=== PATIENT | female | born 1985 | race Caucasian/White ===

== ENCOUNTER 2016-12-24 08:46 | Inpatient (IN) | payer MEDICAID ==
[~2016-12-24] VITALS: Ht 175.3 cm; Wt 77.6 kg
[2016-12-24] MEDS ORDERED: LITH300C3 PO (09:01)
[2016-12-24] MEDS ORDERED: [UNRECOGNIZED DRUG - OTHER] PO (09:01)
[2016-12-24 09:35] LABS: BASOPHILS % (AUTO) 0.3 % (0.0-2.0); EOSINOPHILS % (AUTO) 0.4 % (1.0-6.0); HEMATOCRIT 42.5 % (36-46); LYMPHOCYTES # (AUTO) 1.5 K/uL (1.0-4.8); LYMPHOCYTES % (AUTO) 13.1 % (22.0-44.0); MEAN CORPUSCULAR HEMOGLOBIN 30.9 pg (26.0-34.0); MEAN CORPUSCULAR HGB CONC 32.9 G/dL (31.0-37.0); MEAN CORPUSCULAR VOLUME 94 fL (80-100); MONOCYTES # (AUTO) 0.8 K/uL (0.1-1.0); MONOCYTES % (AUTO) 6.5 % (2.0-9.0); NEUTROPHILS # (AUTO) 9.4 K/uL (1.8-7.7); NEUTROPHILS % (AUTO) 79.7 % (40.0-70.0); PLATELET COUNT (AUTO) 262 K/uL (150-450); RED BLOOD CELL COUNT(AUTO) 4.53 MIL/uL (4.00-5.20); WHITE BLOOD COUNT (AUTO) 11.8 K/uL (4.5-11.0)
[2016-12-24 09:40] LABS: ANION GAP 11 mmol/L (8-16); CALCIUM, TOTAL 9.4 mg/dL (8.8-10.5); CARBON DIOXIDE 25 mmol/L (22-29); CHLORIDE 104 mmol/L (98-107); CREATININE 0.97 mg/dL (0.60-1.30); GLOMERULAR FILTR. RATE CALC > 60 mL/min (>60); SODIUM SERUM 140 mmol/L (136-145); UREA NITROGEN, BLOOD 14 mg/dL (7-18)
[2016-12-24 09:45] LABS: ALANINE AMINOTRANSFERASE 17 U/L (12-78); ALBUMIN 4.4 g/dL (3.4-5.0); ASPARTATE AMINOTRANSFERASE 10 U/L (15-37); BILIRUBIN,TOTAL 0.9 mg/dL (0.1-1.0); TOTAL PROTEIN, SERUM 7.7 g/dL (6.4-8.2)
[2016-12-24 09:53] LABS: LITHIUM 0.93 mmol/L (0.60-1.20)
[2016-12-24] MEDS ORDERED: ZOLPIDEM TARTRATE 10 MG TABLET PO PRN (12:15)
[2016-12-24] MEDS ORDERED: HALOPERIDOL 5 MG TABLET PO PRN (12:15)
[2016-12-24] MEDS ORDERED: LORazepam 2 MG TABLET PO PRN (12:15)
[2016-12-24] MEDS ORDERED: ACETAMINOPHEN 325 MG TABLET PO PRN (15:15)
[2016-12-24 16:09] VITALS: BP 138/86
[2016-12-24] MEDS: RisperiDONE 0.5 MG TABLET PO SCH (16:14)
[2016-12-24] MEDS: LITHIUM CARBONATE 600 MG CAPSULE PO SCH (20:04)
[2016-12-25 03:56] VITALS: BP 138/94
[2016-12-25] MEDS: RisperiDONE 0.5 MG TABLET PO SCH ×2 (08:21→16:19)
[2016-12-25] MEDS: LITHIUM CARBONATE 300 MG CAPSULE PO SCH (08:21)
[2016-12-25 08:39] LABS: CHOL/HDL RATIO 1.9 (3.9-5.7)
[2016-12-25 08:46] VITALS: BP 123/80
[2016-12-25 16:11] VITALS: BP 118/80
[2016-12-25] MEDS: LITHIUM CARBONATE 600 MG CAPSULE PO SCH (20:42)
[2016-12-26 06:07] VITALS: BP 119/87
[2016-12-26] MEDS: RisperiDONE 0.5 MG TABLET PO SCH ×2 (08:09→16:07)
[2016-12-26] MEDS: LITHIUM CARBONATE 300 MG CAPSULE PO SCH (08:09)
[2016-12-26 08:55] VITALS: BP 114/66
[2016-12-26 16:12] VITALS: BP_SYST 73
[2016-12-26] MEDS: LITHIUM CARBONATE 600 MG CAPSULE PO SCH (20:06)
[2016-12-27 06:48] VITALS: BP 115/70
[2016-12-27] MEDS: LITHIUM CARBONATE 300 MG CAPSULE PO SCH (08:01)
[2016-12-27] MEDS: RisperiDONE 0.5 MG TABLET PO SCH ×2 (08:01→16:15)
[2016-12-27 08:36] VITALS: BP 128/78
[2016-12-27 16:00] VITALS: BP 123/84
[2016-12-27] MEDS: LITHIUM CARBONATE 600 MG CAPSULE PO SCH (20:59)
[2016-12-28 06:57] VITALS: BP 125/72
[2016-12-28] MEDS: RisperiDONE 0.5 MG TABLET PO SCH ×2 (08:03→16:18)
[2016-12-28] MEDS: LITHIUM CARBONATE 300 MG CAPSULE PO SCH (08:03)
[2016-12-28 08:44] VITALS: BP 121/72
[2016-12-28 16:00] VITALS: BP 126/74
[2016-12-28] MEDS: LITHIUM CARBONATE 600 MG CAPSULE PO SCH (20:16)
[2016-12-29 07:07] VITALS: BP 128/72
[2016-12-29 08:06] VITALS: BP 115/64
[2016-12-29] MEDS: RisperiDONE 0.5 MG TABLET PO SCH (08:07)
[2016-12-29] MEDS: LITHIUM CARBONATE 300 MG CAPSULE PO SCH (08:07)
[2016-12-29] MEDS ORDERED: LITH300CRT PO (09:34)
[2016-12-29] MEDS ORDERED: RISP.5 PO (09:34)
== END 2016-12-29 11:45 | disposition home or self-care (01) | DRG 750 ==
LOC: EMS 08:48 → AHU 11:08 → B3A 14:40
PROVIDERS: ADMIT Psychiatry & Neurology Psychiatry; ATTEND Psychiatry & Neurology Psychiatry
DX: F25.9 Schizoaffective disorder, unspecified (principal); R45.851 Suicidal ideations; Z91.14 Patient's other noncompliance with medication regimen; G43.909 Migraine, unspecified, not intractable, without status migrainosus; F31.9 Bipolar disorder, unspecified; Z79.899 Other long term (current) drug therapy; Z82.49 Family history of ischemic heart disease and other diseases of the circulatory system; Z82.5 Family history of asthma and other chronic lower respiratory diseases; Z80.42 Family history of malignant neoplasm of prostate
CPT/HCPCS: 99285; G0480

== ENCOUNTER 2017-04-07 19:05 | Emergency (ER) | payer MEDICAID ==
[~2017-04-07] VITALS: Ht 175.3 cm; Wt 72.0 kg
[~2017-04-07 19:05] MED LIST: LITH300C3 PO; LITH300CRT PO; RISP.5 PO
[2017-04-07 19:06] VITALS: BP 138/51
[2017-05-22] MEDS ORDERED: RISP3 PO (11:22)
== END 2017-04-07 19:20 | disposition left against medical advice (07) ==
LOC: EMS 19:06
DX: R56.9 Unspecified convulsions (principal); Z53.21 Procedure and treatment not carried out due to patient leaving prior to being seen by health care provider

== ENCOUNTER 2017-05-09 07:32 | Inpatient (IN) | payer MEDICAID, OTHER ==
[~2017-05-09] VITALS: Ht 175.3 cm; Wt 83.9 kg
[2017-05-09 08:21] LABS: BASOPHILS % (AUTO) 0.3 % (0.0-2.0); EOSINOPHILS % (AUTO) 0.9 % (1.0-6.0); HEMATOCRIT 38.9 % (36-46); HEMOGLOBIN 13.1 g/dL (12.0-16.0); LYMPHOCYTES # (AUTO) 1.8 K/uL (1.0-4.8); LYMPHOCYTES % (AUTO) 20.5 % (22.0-44.0); MEAN CORPUSCULAR HEMOGLOBIN 30.7 pg (26.0-34.0); MEAN CORPUSCULAR HGB CONC 33.5 G/dL (31.0-37.0); MEAN CORPUSCULAR VOLUME 92 fL (80-100); MONOCYTES # (AUTO) 0.4 K/uL (0.1-1.0); MONOCYTES % (AUTO) 5.2 % (2.0-9.0); NEUTROPHILS # (AUTO) 6.3 K/uL (1.8-7.7); NEUTROPHILS % (AUTO) 73.1 % (40.0-70.0); PLATELET COUNT (AUTO) 262 K/uL (150-450); RED BLOOD CELL COUNT(AUTO) 4.25 MIL/uL (4.00-5.20); RED CELL DISTRIBUTION WIDTH 12.6 % (11.5-14.5)
[2017-05-09 08:28] LABS: ANION GAP 8 mmol/L (8-16); CALCIUM, TOTAL 8.9 mg/dL (8.8-10.5); CARBON DIOXIDE 28 mmol/L (22-29); CHLORIDE 108 mmol/L (98-107); CREATININE 0.98 mg/dL (0.60-1.30); GLOMERULAR FILTR. RATE CALC > 60 mL/min (>60); GLUCOSE,RANDOM 101 mg/dL (70-110); POTASSIUM 4.4 mmol/L (3.5-5.1); SODIUM SERUM 144 mmol/L (136-145); UREA NITROGEN, BLOOD 17 mg/dL (7-18)
[2017-05-09] MEDS ORDERED: RisperiDONE 1 MG TABLET PO ONE (08:30)
[2017-05-09 08:32] LABS: ALANINE AMINOTRANSFERASE 23 U/L (12-78); ALBUMIN 3.8 g/dL (3.4-5.0); ALKALINE PHOSPHATASE 48 U/L (46-116); ASPARTATE AMINOTRANSFERASE 15 U/L (15-37); BILIRUBIN,TOTAL 0.3 mg/dL (0.1-1.0)
[2017-05-09] MEDS ORDERED: LITHIUM CARBONATE 300 MG CAPSULE PO ONE (08:45)
[2017-05-09] MEDS ORDERED: ZOLPIDEM TARTRATE 10 MG TABLET PO PRN (09:30)
[2017-05-09] MEDS ORDERED: LORazepam 2 MG TABLET PO PRN (09:30)
[2017-05-09] MEDS ORDERED: HALOPERIDOL 5 MG TABLET PO PRN (09:30)
[2017-05-09 10:47] LABS: AMPHET/METH SCREEN,URINE NEGATIVE (NEGATIVE); BARBITURATE SCREEN, URINE NEGATIVE (NEGATIVE); BENZODIAZEPINES SCREEN,URINE NEGATIVE (NEGATIVE); CANNABINOID SCREEN,URINE NEGATIVE (NEGATIVE); COCAINE SCREEN,URINE NEGATIVE (NEGATIVE); METHADONE SCREEN, URINE NEGATIVE (NEGATIVE); OPIATE SCREEN,URINE NEGATIVE (NEGATIVE); PHENCYCLIDINE SCREEN,URINE NEGATIVE (NEGATIVE)
[2017-05-09] MEDS ORDERED: LITH600 PO (12:23)
[2017-05-09] MEDS ORDERED: INFLUENZA VIRUS VACCINE QVS 2017-18 (3YR+)/PF 60 MCG/0.5 ML SYRINGE IM ONE (12:30)
[2017-05-09 16:58] VITALS: BP 123/64
[2017-05-09] MEDS: RisperiDONE 0.5 MG TABLET PO SCH (16:58)
[2017-05-09] MEDS: LITHIUM CARBONATE 600 MG CAPSULE PO SCH (20:27)
[2017-05-10 06:42] VITALS: BP 118/68
[2017-05-10] MEDS: LITHIUM CARBONATE 300 MG CAPSULE PO SCH (08:29)
[2017-05-10] MEDS: RisperiDONE 0.5 MG TABLET PO SCH ×2 (08:29→17:19)
[2017-05-10 09:12] VITALS: BP 112/70
[2017-05-10 11:42] LABS: CHOL/HDL RATIO 2.6 (3.9-5.7); FREE T4 (FREE THYROXINE) 0.86 ng/dL (0.76-1.46); THYROID STIMULATING HORMONE 1.64 uIU/mL (0.36-3.74)
[2017-05-10 16:00] VITALS: BP 119/92
[2017-05-10] MEDS: LITHIUM CARBONATE 600 MG CAPSULE PO SCH (20:08)
[2017-05-11 00:21] VITALS: BP 133/84
[2017-05-11] MEDS: LITHIUM CARBONATE 300 MG CAPSULE PO SCH (08:29)
[2017-05-11] MEDS: RisperiDONE 0.5 MG TABLET PO SCH ×2 (08:29→16:13)
[2017-05-11 09:08] VITALS: BP 128/73
[2017-05-11 16:25] VITALS: BP 117/70
[2017-05-11] MEDS: LITHIUM CARBONATE 600 MG CAPSULE PO SCH (20:11)
[2017-05-12 05:23] VITALS: BP 111/69
[2017-05-12] MEDS: LITHIUM CARBONATE 300 MG CAPSULE PO SCH (09:00)
[2017-05-12] MEDS: RisperiDONE 1 MG TABLET PO SCH ×2 (09:46→16:31)
[2017-05-12 09:51] VITALS: BP 122/71
[2017-05-12 16:55] VITALS: BP 108/74
[2017-05-12] MEDS: LITHIUM CARBONATE 600 MG CAPSULE PO SCH (20:17)
[2017-05-13 06:25] VITALS: BP 114/63
[2017-05-13] MEDS: RisperiDONE 1 MG TABLET PO SCH (08:54)
[2017-05-13] MEDS: LITHIUM CARBONATE 300 MG CAPSULE PO SCH (09:00)
[2017-05-13] MEDS: RisperiDONE 2 MG TABLET PO SCH (16:15)
[2017-05-13 16:31] VITALS: BP 106/65
[2017-05-14 07:17] VITALS: BP 110/63
[2017-05-14 08:25] VITALS: BP 121/72
[2017-05-14] MEDS: RisperiDONE 2 MG TABLET PO SCH ×2 (09:48→17:11)
[2017-05-14 16:20] VITALS: BP 136/76
[2017-05-15 08:36] VITALS: BP 123/76
[2017-05-15] MEDS: RisperiDONE 2 MG TABLET PO SCH ×2 (08:53→16:47)
[2017-05-15 16:27] VITALS: BP 121/77
[2017-05-16 03:18] VITALS: BP 127/63
[2017-05-16 08:33] VITALS: BP 122/77
[2017-05-16] MEDS: RisperiDONE 2 MG TABLET PO SCH ×2 (09:25→16:52)
[2017-05-16 16:48] VITALS: BP 108/70
[2017-05-17 05:11] VITALS: BP 112/63
[2017-05-17 08:47] VITALS: BP_SYST 116; BP_SYST 168; BP_DIAS 68
[2017-05-17] MEDS: RisperiDONE 2 MG TABLET PO SCH ×2 (09:29→16:36)
[2017-05-17 16:38] VITALS: BP 107/71
[2017-05-18 02:11] VITALS: BP 116/76
[2017-05-18] MEDS ORDERED: RisperiDONE 3 MG TABLET PO SCH (09:00)
[2017-05-22] MEDS ORDERED: RISP3 PO (11:22)
== END 2017-05-18 13:30 | disposition home or self-care (01) | DRG 753 ==
LOC: EMS 07:37 → B3A 09:52
PROVIDERS: ADMIT Psychiatry & Neurology Psychiatry; ATTEND Psychiatry & Neurology Psychiatry
DX: F31.9 Bipolar disorder, unspecified (principal); F25.9 Schizoaffective disorder, unspecified; F22 Delusional disorders; Z82.49 Family history of ischemic heart disease and other diseases of the circulatory system; Z82.5 Family history of asthma and other chronic lower respiratory diseases
CPT/HCPCS: 84439; 84443; 87081; 99285; G0480

== ENCOUNTER 2017-06-03 18:59 | Inpatient (IN) | payer MEDICAID, OTHER ==
[~2017-06-03] VITALS: Ht 175.3 cm; Wt 85.4 kg
[~2017-06-03 18:59] MED LIST changes: +DOCU250C91 PO; -LITH300C3 PO; -LITH300CRT PO; +LITH450CRT PO; -RISP.5 PO; +RISP3 PO; +RISP3TAB44 PO
[2017-06-03] MEDS ORDERED: HALOPERIDOL 5 MG TABLET PO PRN (22:45)
[2017-06-03] MEDS ORDERED: LORazepam 2 MG TABLET PO PRN (22:45)
[2017-06-03] MEDS ORDERED: ZOLPIDEM TARTRATE 10 MG TABLET PO PRN (22:45)
[2017-06-03] MEDS ORDERED: LITHIUM CARBONATE 300 MG CAPSULE PO ONE (23:15)
[2017-06-04] MEDS ORDERED: INFLUENZA VIRUS VACCINE QVS 2017-18 (3YR+)/PF 60 MCG/0.5 ML SYRINGE IM ONE (01:15)
[2017-06-04 01:39] VITALS: BP 125/74
[2017-06-04 14:24] VITALS: BP 104/70
[2017-06-04 16:10] VITALS: BP 120/63
[2017-06-04] MEDS: LITHIUM CARBONATE 300 MG CAPSULE PO SCH (20:32)
[2017-06-05 07:00] VITALS: BP 121/74
[2017-06-05 08:37] VITALS: BP 122/74
[2017-06-05] MEDS: RisperiDONE 3 MG TABLET PO SCH ×2 (09:06→16:35)
[2017-06-05 16:05] VITALS: BP 109/69
[2017-06-05] MEDS: LITHIUM CARBONATE 300 MG CAPSULE PO SCH (20:22)
[2017-06-05] MEDS ORDERED: TUBERCULIN, PURIFIED PROTEIN DERIVATIVE 5 TU/0.1 ML SYG ID ONE (21:15)
[2017-06-06 02:58] VITALS: BP 114/75
[2017-06-06] MEDS: RisperiDONE 3 MG TABLET PO SCH ×2 (08:36→16:49)
[2017-06-06 08:46] VITALS: BP 123/65
[2017-06-06 16:00] VITALS: BP 109/67
[2017-06-06] MEDS: LITHIUM CARBONATE 300 MG CAPSULE PO SCH (20:39)
[2017-06-07 07:14] VITALS: BP 120/70
[2017-06-07 08:28] VITALS: BP 108/73
[2017-06-07] MEDS: RisperiDONE 3 MG TABLET PO SCH ×2 (08:49→17:13)
[2017-06-07 16:16] VITALS: BP 117/64
[2017-06-07] MEDS: LITHIUM CARBONATE 300 MG CAPSULE PO SCH (20:36)
[2017-06-08 07:06] VITALS: BP 115/68
[2017-06-08] MEDS: RisperiDONE 3 MG TABLET PO SCH ×2 (08:08→16:17)
[2017-06-08 08:43] VITALS: BP 116/75
[2017-06-08 16:23] VITALS: BP 121/78
[2017-06-08] MEDS: LITHIUM CARBONATE 300 MG CAPSULE PO SCH (20:20)
[2017-06-09 06:45] VITALS: BP 111/76
[2017-06-09 08:11] VITALS: BP 135/86
[2017-06-09] MEDS: RisperiDONE 3 MG TABLET PO SCH ×2 (08:26→16:58)
[2017-06-09 16:30] VITALS: BP 115/72
[2017-06-09] MEDS: LITHIUM CARBONATE 300 MG CAPSULE PO SCH (20:42)
[2017-06-10 07:28] VITALS: BP 110/76
[2017-06-10] MEDS: RisperiDONE 3 MG TABLET PO SCH ×2 (08:15→16:30)
[2017-06-10 08:34] VITALS: BP 125/69
[2017-06-10 17:05] VITALS: BP 119/68
[2017-06-10] MEDS: LITHIUM CARBONATE 300 MG CAPSULE PO SCH (20:58)
[2017-06-11 07:09] VITALS: BP 121/82
[2017-06-11] MEDS: RisperiDONE 3 MG TABLET PO SCH ×2 (08:23→16:08)
[2017-06-11 08:33] VITALS: BP 117/76
[2017-06-11 16:23] VITALS: BP 103/66
[2017-06-11] MEDS: LITHIUM CARBONATE 300 MG CAPSULE PO SCH (20:52)
[2017-06-12] MEDS: RisperiDONE 3 MG TABLET PO SCH ×2 (08:04→16:39)
[2017-06-12 08:33] VITALS: BP 112/60
[2017-06-12 16:18] VITALS: BP 110/68
[2017-06-12] MEDS: LITHIUM CARBONATE 300 MG CAPSULE PO SCH (20:35)
[2017-06-13 06:22] VITALS: BP 112/63
[2017-06-13 08:38] VITALS: BP 108/68
[2017-06-13] MEDS: RisperiDONE 3 MG TABLET PO SCH ×2 (08:52→16:36)
[2017-06-13 18:37] VITALS: BP 105/65
[2017-06-13] MEDS: LITHIUM CARBONATE 300 MG CAPSULE PO SCH (20:30)
[2017-06-14 06:00] VITALS: BP 110/64
[2017-06-14] MEDS: RisperiDONE 3 MG TABLET PO SCH (08:28)
[2017-06-14 08:41] VITALS: BP 115/68
[2017-06-14] MEDS ORDERED: RISP3 PO (11:42)
[2017-06-14] MEDS ORDERED: LITH600 PO (11:42)
== END 2017-06-14 13:45 | disposition home or self-care (01) | DRG 750 ==
LOC: EMS 19:00 → B3A 23:00
PROVIDERS: ADMIT Psychiatry & Neurology Psychiatry; ATTEND Psychiatry & Neurology Psychiatry
PROC: 3E0234Z Introduction of Serum, Toxoid and Vaccine into Muscle, Percutaneous Approach (ICD-10-PCS; principal; 2017-06-04)
DX: F25.0 Schizoaffective disorder, bipolar type (principal); Z59.0 Homelessness; Z23 Encounter for immunization; Z79.899 Other long term (current) drug therapy
CPT/HCPCS: 87081; 90471; 99285

== ENCOUNTER 2020-12-08 17:22 | Inpatient (IN) | payer MEDICAID, OTHER ==
[~2020-12-08] VITALS: Ht 175.3 cm; Wt 94.8 kg
[~2020-12-08 17:22] MED LIST changes: -DOCU250C91 PO; -LITH450CRT PO; +LITH600C5 PO; -RISP3 PO; +RISP3TAB35 PO; -RISP3TAB44 PO
[2020-12-08 20:06] LABS: COVID AG,FIA SOURCE NASOPHARYNGEAL
[2020-12-08 20:19] LABS: BASOPHILS % (AUTO) 0.5 % (0.0-2.0); EOSINOPHILS % (AUTO) 0.2 % (1.0-6.0); HEMATOCRIT 37.2 % (36-46); LYMPHOCYTES # (AUTO) 1.8 K/uL (1.0-4.8); LYMPHOCYTES % (AUTO) 16.7 % (22.0-44.0); MEAN CORPUSCULAR HEMOGLOBIN 29.3 pg (26.0-34.0); MEAN CORPUSCULAR HGB CONC 32.4 G/dL (31.0-37.0); MEAN CORPUSCULAR VOLUME 91 fL (80-100); MONOCYTES # (AUTO) 0.6 K/uL (0.1-1.0); MONOCYTES % (AUTO) 5.8 % (2.0-9.0); NEUTROPHILS # (AUTO) 8.2 K/uL (1.8-7.7); NEUTROPHILS % (AUTO) 76.8 % (40.0-70.0); PLATELET COUNT (AUTO) 248 K/uL (150-450); RED BLOOD CELL COUNT(AUTO) 4.11 MIL/uL (4.00-5.20); RED CELL DISTRIBUTION WIDTH 13.5 % (11.5-14.5)
[2020-12-08 20:40] LABS: LITHIUM 0.37 mmol/L (0.60-1.20)
[2020-12-08 20:43] LABS: ANION GAP 10 mmol/L (8-16); CALCIUM, TOTAL 8.8 mg/dL (8.8-10.5); CARBON DIOXIDE 24 mmol/L (22-29); CHLORIDE 106 mmol/L (98-107); CREATININE 0.87 mg/dL (0.60-1.30); GLOMERULAR FILTR. RATE CALC > 60 mL/min (>60); GLUCOSE,RANDOM 112 mg/dL (70-110); SODIUM SERUM 140 mmol/L (136-145); UREA NITROGEN, BLOOD 8 mg/dL (7-18)
[2020-12-08 20:53] LABS: ALANINE AMINOTRANSFERASE 32 U/L (12-78); ALKALINE PHOSPHATASE 64 U/L (46-116); ASPARTATE AMINOTRANSFERASE 18 U/L (15-37); BILIRUBIN,TOTAL 0.7 mg/dL (0.1-1.0)
[2020-12-08] MEDS ORDERED: ZOLPIDEM TARTRATE 10 MG TABLET PO PRN (21:45)
[2020-12-08] MEDS ORDERED: LORazepam 2 MG TABLET PO PRN (21:45)
[2020-12-08] MEDS ORDERED: HALOPERIDOL 5 MG TABLET PO PRN (21:45)
[2020-12-08 21:51] LABS: AMPHET/METH SCREEN,URINE NEGATIVE (NEGATIVE); BARBITURATE SCREEN, URINE NEGATIVE (NEGATIVE); BENZODIAZEPINES SCREEN,URINE NEGATIVE (NEGATIVE); CANNABINOID SCREEN,URINE NEGATIVE (NEGATIVE); COCAINE SCREEN,URINE NEGATIVE (NEGATIVE); METHADONE SCREEN, URINE NEGATIVE (NEGATIVE); OPIATE SCREEN,URINE NEGATIVE (NEGATIVE)
[2020-12-08 21:52] LABS: PHENCYCLIDINE SCREEN,URINE NEGATIVE (NEGATIVE)
[2020-12-09 00:38] VITALS: BP 141/69
[2020-12-09] MEDS ORDERED: MAG HYDROX/AL HYDROX/SIMETH ES 30 ML SUSPENSION UDCUP PO PRN (07:00)
[2020-12-09] MEDS ORDERED: LOPERAMIDE HCL 2 MG CAPSULE PO PRN (07:00)
[2020-12-09] MEDS ORDERED: MAGNESIUM HYDROXIDE SUSPENSION 30 ML UDCUP PO PRN (07:00)
[2020-12-09] MEDS ORDERED: PETROLATUM,WHITE 28 GM JELLY TP PRN (07:00)
[2020-12-09] MEDS ORDERED: OMEPRAZOLE 20 MG CAPSULE PO PRN (07:00)
[2020-12-09] MEDS ORDERED: CloNIDine HCL 0.1 MG TABLET PO PRN (07:00)
[2020-12-09] MEDS ORDERED: BACITRACIN 28 GM OINTMENT TP PRN (07:00)
[2020-12-09] MEDS ORDERED: ONDANSETRON HCL 4 MG TABLET PO PRN (07:00)
[2020-12-09] MEDS ORDERED: DOCUSATE SODIUM 100 MG CAPSULE PO PRN (07:00)
[2020-12-09] MEDS ORDERED: BENZOCAINE/MENTHOL LOZENGE PO PRN (07:00)
[2020-12-09] MEDS ORDERED: IBUPROFEN 600 MG TABLET PO PRN (07:00)
[2020-12-09] MEDS ORDERED: ACETAMINOPHEN 325 MG TABLET PO PRN (07:00)
[2020-12-09] MEDS ORDERED: ALBUTEROL SULFATE HFA 90 MCG/PUFF 8 GM INHALER IH PRN (07:00)
[2020-12-09 08:50] VITALS: BP 125/57
[2020-12-09 10:30] LABS: CHOL/HDL RATIO 2.8 (3.9-5.7)
[2020-12-09] MEDS ORDERED: DiphenhydrAMINE HCL 50 MG/ML VIAL ONE (11:14)
[2020-12-09] MEDS ORDERED: LORazepam 2 MG/ML VIAL ONE (11:14)
[2020-12-09] MEDS ORDERED: HALOPERIDOL LACTATE 5 MG/ML VIAL ONE (11:14)
[2020-12-09] MEDS ORDERED: LORazepam 2 MG/ML VIAL IM ONE (11:15)
[2020-12-09] MEDS ORDERED: HALOPERIDOL LACTATE 5 MG/ML VIAL IM ONE (11:15)
[2020-12-09] MEDS ORDERED: DiphenhydrAMINE HCL 50 MG/ML VIAL IM ONE (11:15)
[2020-12-09] MEDS: RisperiDONE 3 MG TABLET PO SCH (16:49)
[2020-12-09] MEDS: LITHIUM CARBONATE 300 MG CAPSULE PO SCH ×2 (21:00→22:45)
[2020-12-10 08:00] VITALS: BP 115/76
[2020-12-10] MEDS: RisperiDONE 3 MG TABLET PO SCH ×2 (08:07→16:23)
[2020-12-10 16:00] VITALS: BP 123/67
[2020-12-10] MEDS: LITHIUM CARBONATE 300 MG CAPSULE PO SCH (20:22)
[2020-12-11 08:21] VITALS: BP 141/81
[2020-12-11] MEDS: RisperiDONE 3 MG TABLET PO SCH ×2 (11:01→15:54)
[2020-12-11 18:55] VITALS: BP 108/68
[2020-12-11] MEDS: LITHIUM CARBONATE 300 MG CAPSULE PO SCH (20:15)
[2020-12-12 08:30] VITALS: BP 134/86
[2020-12-12] MEDS: RisperiDONE 3 MG TABLET PO SCH ×2 (09:05→16:05)
[2020-12-12 16:00] VITALS: BP 117/73
[2020-12-12] MEDS: LITHIUM CARBONATE 300 MG CAPSULE PO SCH (20:08)
[2020-12-13 04:12] VITALS: BP 113/75
[2020-12-13 08:00] VITALS: BP 101/66
[2020-12-13] MEDS: RisperiDONE 3 MG TABLET PO SCH ×2 (09:39→16:07)
[2020-12-13 16:00] VITALS: BP 118/72
[2020-12-13] MEDS: LITHIUM CARBONATE 300 MG CAPSULE PO SCH (20:06)
[2020-12-14 08:00] VITALS: BP 118/74
[2020-12-14] MEDS: RisperiDONE 3 MG TABLET PO SCH (11:24)
== END 2020-12-14 15:15 | disposition home or self-care (01) | DRG 750 ==
LOC: EMS 17:32 → 3EI 23:24 → 3EC 12-09 11:45
PROVIDERS: ADMIT Psychiatry & Neurology Psychiatry; ATTEND Psychiatry & Neurology Psychiatry
DX: F25.1 Schizoaffective disorder, depressive type (principal); R45.851 Suicidal ideations; F41.9 Anxiety disorder, unspecified; G47.00 Insomnia, unspecified; K59.00 Constipation, unspecified; Z79.899 Other long term (current) drug therapy; F19.10 Other psychoactive substance abuse, uncomplicated; Z20.822 Contact with and (suspected) exposure to COVID-19
CPT/HCPCS: 80053; 80061; 80178; 85025; 99285; G0480; J1200; J1630; J2060

== ENCOUNTER 2022-02-13 03:25 | Inpatient (IN) | payer MEDICAID, OTHER ==
[~2022-02-13] VITALS: Ht 175.3 cm; Wt 89.4 kg
[2022-02-13 04:18] LABS: BASOPHILS % (AUTO) 0.5 % (0.0-2.0); EOSINOPHILS % (AUTO) 1.4 % (1.0-6.0); HEMOGLOBIN 11.4 g/dL (12.0-16.0); LYMPHOCYTES # (AUTO) 2.3 K/uL (1.0-4.8); LYMPHOCYTES % (AUTO) 23.1 % (22.0-44.0); MEAN CORPUSCULAR HEMOGLOBIN 29.4 pg (26.0-34.0); MEAN CORPUSCULAR HGB CONC 32.6 G/dL (31.0-37.0); MEAN CORPUSCULAR VOLUME 90 fL (80-100); MONOCYTES # (AUTO) 0.8 K/uL (0.1-1.0); MONOCYTES % (AUTO) 7.7 % (2.0-9.0); NEUTROPHILS # (AUTO) 6.8 K/uL (1.8-7.7); NEUTROPHILS % (AUTO) 67.3 % (40.0-70.0); PLATELET COUNT (AUTO) 280 K/uL (150-450); RED BLOOD CELL COUNT(AUTO) 3.88 MIL/uL (4.00-5.20); RED CELL DISTRIBUTION WIDTH 13.9 % (11.5-14.5)
[2022-02-13 04:25] LABS: ANION GAP 5 mmol/L (8-16); CALCIUM, TOTAL 8.8 mg/dL (8.8-10.5); CARBON DIOXIDE 28 mmol/L (22-29); CHLORIDE 108 mmol/L (98-107); CREATININE 0.99 mg/dL (0.60-1.30); GLUCOSE,RANDOM 101 mg/dL (70-110); POTASSIUM 3.8 mmol/L (3.5-5.1); SODIUM SERUM 141 mmol/L (136-145); UREA NITROGEN, BLOOD 7 mg/dL (7-18)
[2022-02-13 04:26] LABS: GLOMERULAR FILTR. RATE CALC > 60 mL/min (>60)
[2022-02-13 04:36] LABS: ALANINE AMINOTRANSFERASE 27 U/L (12-78); ALBUMIN 3.6 g/dL (3.4-5.0); ALKALINE PHOSPHATASE 64 U/L (46-116); ASPARTATE AMINOTRANSFERASE 18 U/L (15-37); BILIRUBIN,TOTAL 0.5 mg/dL (0.1-1.0); HCG,QUANTITATIVE < 1 mIU/mL (0-6); TOTAL PROTEIN, SERUM 6.6 g/dL (6.4-8.2)
[2022-02-13] MEDS ORDERED: CefTRIAXone SODIUM 1 GM/VIAL IM ONE (04:45)
[2022-02-13] MEDS ORDERED: LIDOCAINE/PF 1% 2 ML VIAL IM ONE (04:45)
[2022-02-13] MEDS ORDERED: MetroNIDAZOLE 500 MG TABLET PO ONE (04:45)
[2022-02-13] MEDS ORDERED: DOXYCYCLINE HYCLATE 100 MG TABLET PO ONE (04:45)
[2022-02-13 05:49] LABS: COVID AG,FIA SOURCE NASOPHARYNGEAL
[2022-02-13] MEDS: HALOPERIDOL 5 MG TABLET PO PRN ×2 (06:25→20:00)
[2022-02-13] MEDS: LORazepam 2 MG TABLET PO PRN ×2 (06:25→20:00)
[2022-02-13] MEDS ORDERED: ONDANSETRON HCL 4 MG TABLET PO PRN (18:00)
[2022-02-13] MEDS ORDERED: DOCUSATE SODIUM 100 MG CAPSULE PO PRN (18:00)
[2022-02-13] MEDS ORDERED: BENZOCAINE/MENTHOL LOZENGE PO PRN (18:00)
[2022-02-13] MEDS ORDERED: LOPERAMIDE HCL 2 MG CAPSULE PO PRN (18:00)
[2022-02-13] MEDS ORDERED: CloNIDine HCL 0.1 MG TABLET PO PRN (18:00)
[2022-02-13] MEDS ORDERED: ALBUTEROL SULFATE HFA 90 MCG/PUFF 8 GM INHALER IH PRN (18:00)
[2022-02-13] MEDS ORDERED: MAG HYDROX/AL HYDROX/SIMETH ES 30 ML SUSPENSION UDCUP PO PRN (18:00)
[2022-02-13] MEDS ORDERED: OMEPRAZOLE 20 MG CAPSULE PO PRN (18:00)
[2022-02-13] MEDS ORDERED: IBUPROFEN 600 MG TABLET PO PRN (18:00)
[2022-02-13] MEDS ORDERED: PETROLATUM,WHITE 28 GM JELLY TP PRN (18:00)
[2022-02-13] MEDS ORDERED: ACETAMINOPHEN 325 MG TABLET PO PRN (18:00)
[2022-02-13] MEDS ORDERED: BACITRACIN 28 GM OINTMENT TP PRN (18:00)
[2022-02-13] MEDS: ZOLPIDEM TARTRATE 10 MG TABLET PO PRN (20:00)
[2022-02-14 08:14] VITALS: BP 110/65
[2022-02-14] MEDS: LORazepam 2 MG TABLET PO PRN (08:44)
[2022-02-14] MEDS: HALOPERIDOL 5 MG TABLET PO PRN (08:44)
[2022-02-14] MEDS ORDERED: LORazepam 2 MG/ML VIAL ONE (08:56)
[2022-02-14] MEDS ORDERED: DiphenhydrAMINE HCL 50 MG/ML VIAL ONE (08:56)
[2022-02-14] MEDS ORDERED: HALOPERIDOL LACTATE 5 MG/ML VIAL ONE (08:56)
[2022-02-14] MEDS ORDERED: DiphenhydrAMINE HCL 50 MG/ML VIAL IM ONE (09:00)
[2022-02-14] MEDS ORDERED: LORazepam 2 MG/ML VIAL IM ONE (09:00)
[2022-02-14] MEDS ORDERED: HALOPERIDOL LACTATE 5 MG/ML VIAL IM ONE (09:00)
[2022-02-14] MEDS: BENZTROPINE MESYLATE 1 MG TABLET PO SCH (16:55)
[2022-02-14] MEDS: RisperiDONE 2 MG TABLET PO SCH (16:55)
[2022-02-14] MEDS: QUEtiapine FUMARATE 200 MG TABLET PO SCH (16:55)
[2022-02-14 20:34] VITALS: BP 125/63
[2022-02-14] MEDS: ZOLPIDEM TARTRATE 10 MG TABLET PO PRN (20:41)
[2022-02-14] MEDS: LITHIUM CARBONATE 300 MG CAPSULE PO SCH (20:41)
[2022-02-15] MEDS: HALOPERIDOL 5 MG TABLET PO PRN (03:52)
[2022-02-15] MEDS: LORazepam 2 MG TABLET PO PRN (03:52)
[2022-02-15 07:07] LABS: HIV 1-2 SCREEN 4TH GEN W/RFLX Non Reactive (Non Reactive)
[2022-02-15] MEDS: QUEtiapine FUMARATE 200 MG TABLET PO SCH ×2 (09:43→16:00)
[2022-02-15] MEDS: RisperiDONE 2 MG TABLET PO SCH ×2 (09:44→16:00)
[2022-02-15] MEDS: BENZTROPINE MESYLATE 1 MG TABLET PO SCH ×2 (09:45→16:00)
[2022-02-15 09:49] VITALS: BP 117/72
[2022-02-15] MEDS: LITHIUM CARBONATE 300 MG CAPSULE PO SCH (20:03)
[2022-02-15 23:28] VITALS: BP 128/78
[2022-02-16] MEDS: ZOLPIDEM TARTRATE 10 MG TABLET PO PRN (01:48)
[2022-02-16] MEDS: BENZTROPINE MESYLATE 1 MG TABLET PO SCH ×2 (09:33→16:06)
[2022-02-16] MEDS: RisperiDONE 2 MG TABLET PO SCH ×2 (09:33→16:06)
[2022-02-16] MEDS: QUEtiapine FUMARATE 200 MG TABLET PO SCH ×2 (09:33→16:05)
[2022-02-16 12:35] VITALS: BP 118/79
[2022-02-16] MEDS: LITHIUM CARBONATE 300 MG CAPSULE PO SCH (20:10)
[2022-02-16 20:20] VITALS: BP 121/80
[2022-02-17 08:00] VITALS: BP 129/71
[2022-02-17] MEDS: BENZTROPINE MESYLATE 1 MG TABLET PO SCH ×2 (08:49→16:19)
[2022-02-17] MEDS: QUEtiapine FUMARATE 200 MG TABLET PO SCH ×2 (08:49→16:19)
[2022-02-17] MEDS: RisperiDONE 2 MG TABLET PO SCH ×2 (08:50→16:19)
[2022-02-17] MEDS: LITHIUM CARBONATE 300 MG CAPSULE PO SCH (20:36)
[2022-02-17 20:49] VITALS: BP 112/77
[2022-02-18] MEDS: QUEtiapine FUMARATE 200 MG TABLET PO SCH ×2 (09:37→17:06)
[2022-02-18] MEDS: BENZTROPINE MESYLATE 1 MG TABLET PO SCH ×2 (09:37→17:06)
[2022-02-18] MEDS: RisperiDONE 2 MG TABLET PO SCH ×2 (09:37→17:06)
[2022-02-18 12:52] VITALS: BP 106/65
[2022-02-18 14:07] LABS: HEPATITIS C AB (EIA) 0.1 s/co ratio (0.0-0.9)
[2022-02-18] MEDS: LITHIUM CARBONATE 300 MG CAPSULE PO SCH (20:53)
[2022-02-19 08:14] VITALS: BP 125/76
[2022-02-19] MEDS: RisperiDONE 2 MG TABLET PO SCH ×2 (08:48→16:43)
[2022-02-19] MEDS: QUEtiapine FUMARATE 200 MG TABLET PO SCH ×2 (08:48→16:44)
[2022-02-19] MEDS: BENZTROPINE MESYLATE 1 MG TABLET PO SCH ×2 (08:48→16:43)
[2022-02-19 20:43] VITALS: BP 119/56
[2022-02-19] MEDS: LITHIUM CARBONATE 300 MG CAPSULE PO SCH (21:08)
[2022-02-20 07:30] VITALS: BP 135/72
[2022-02-20 07:50] VITALS: BP 120/65
[2022-02-20 08:00] VITALS: BP 124/72
[2022-02-20] MEDS: RisperiDONE 2 MG TABLET PO SCH ×2 (09:14→16:10)
[2022-02-20] MEDS: BENZTROPINE MESYLATE 1 MG TABLET PO SCH ×2 (09:14→16:10)
[2022-02-20] MEDS: QUEtiapine FUMARATE 200 MG TABLET PO SCH ×2 (09:14→16:10)
[2022-02-20] MEDS: LITHIUM CARBONATE 300 MG CAPSULE PO SCH (20:24)
[2022-02-20 20:31] VITALS: BP 117/69
[2022-02-21 07:46] LABS: GLUCOMETER DEV NAME(LOC) POC.BV
[2022-02-21 08:16] VITALS: BP 133/80
[2022-02-21] MEDS: BENZTROPINE MESYLATE 1 MG TABLET PO SCH ×2 (08:45→17:05)
[2022-02-21] MEDS: QUEtiapine FUMARATE 200 MG TABLET PO SCH ×2 (08:45→17:05)
[2022-02-21] MEDS: RisperiDONE 2 MG TABLET PO SCH ×2 (08:45→17:05)
[2022-02-21] MEDS: MAGNESIUM HYDROXIDE SUSPENSION 30 ML UDCUP PO PRN (10:33)
[2022-02-21 20:48] VITALS: BP 128/64
[2022-02-21] MEDS: LITHIUM CARBONATE 300 MG CAPSULE PO SCH (21:41)
[2022-02-21] MEDS: ZOLPIDEM TARTRATE 10 MG TABLET PO PRN (21:42)
[2022-02-22 08:40] VITALS: BP 116/77
[2022-02-22] MEDS: QUEtiapine FUMARATE 200 MG TABLET PO SCH ×2 (08:50→16:36)
[2022-02-22] MEDS: RisperiDONE 2 MG TABLET PO SCH ×2 (08:51→16:36)
[2022-02-22] MEDS: BENZTROPINE MESYLATE 1 MG TABLET PO SCH ×2 (08:51→16:36)
[2022-02-22] MEDS: MAGNESIUM HYDROXIDE SUSPENSION 30 ML UDCUP PO PRN ×2 (09:35→21:40)
[2022-02-22] MEDS ORDERED: SODIUM PHOS/SODIUM BIPHOS 133 ML ENEMA PR PRN (10:30)
[2022-02-22 20:06] VITALS: BP 117/83
[2022-02-22] MEDS: LITHIUM CARBONATE 300 MG CAPSULE PO SCH (20:43)
[2022-02-23 08:19] VITALS: BP 126/70
[2022-02-23] MEDS: QUEtiapine FUMARATE 200 MG TABLET PO SCH ×2 (09:13→17:18)
[2022-02-23] MEDS: DOCUSATE SODIUM 100 MG CAPSULE PO SCH (09:13)
[2022-02-23] MEDS: RisperiDONE 2 MG TABLET PO SCH ×2 (09:13→17:18)
[2022-02-23] MEDS: BENZTROPINE MESYLATE 1 MG TABLET PO SCH ×2 (09:13→17:18)
[2022-02-23] MEDS: LITHIUM CARBONATE 300 MG CAPSULE PO SCH (20:43)
[2022-02-23 21:19] VITALS: BP 111/67
[2022-02-24 08:13] VITALS: BP 110/67
[2022-02-24] MEDS: BENZTROPINE MESYLATE 1 MG TABLET PO SCH ×2 (08:59→17:06)
[2022-02-24] MEDS: DOCUSATE SODIUM 100 MG CAPSULE PO SCH (08:59)
[2022-02-24] MEDS: QUEtiapine FUMARATE 200 MG TABLET PO SCH ×2 (09:00→17:06)
[2022-02-24] MEDS: RisperiDONE 3 MG TABLET PO SCH ×2 (09:00→17:06)
[2022-02-24 20:32] VITALS: BP 124/69
[2022-02-24] MEDS: LITHIUM CARBONATE 300 MG CAPSULE PO SCH (21:02)
[2022-02-25 08:49] VITALS: BP 132/73
[2022-02-25] MEDS: QUEtiapine FUMARATE 200 MG TABLET PO SCH ×2 (09:18→16:54)
[2022-02-25] MEDS: BENZTROPINE MESYLATE 1 MG TABLET PO SCH ×2 (09:18→16:54)
[2022-02-25] MEDS: RisperiDONE 3 MG TABLET PO SCH ×2 (09:18→16:54)
[2022-02-25] MEDS: DOCUSATE SODIUM 100 MG CAPSULE PO SCH (09:19)
[2022-02-25 12:46] LABS: GLUCOMETER DEV NAME(LOC) POC.BV
[2022-02-25 20:30] VITALS: BP 107/66
[2022-02-25] MEDS: LITHIUM CARBONATE 300 MG CAPSULE PO SCH (20:41)
[2022-02-26 08:30] VITALS: BP 125/73
[2022-02-26] MEDS: DOCUSATE SODIUM 100 MG CAPSULE PO SCH (08:46)
[2022-02-26] MEDS: QUEtiapine FUMARATE 200 MG TABLET PO SCH ×2 (08:46→17:07)
[2022-02-26] MEDS: RisperiDONE 3 MG TABLET PO SCH ×2 (08:46→17:06)
[2022-02-26] MEDS: BENZTROPINE MESYLATE 1 MG TABLET PO SCH ×2 (08:46→17:07)
[2022-02-26 20:04] VITALS: BP 107/62
[2022-02-26] MEDS: LITHIUM CARBONATE 300 MG CAPSULE PO SCH (20:38)
[2022-02-27 08:15] VITALS: BP 113/76
[2022-02-27] MEDS: RisperiDONE 3 MG TABLET PO SCH ×2 (08:50→16:55)
[2022-02-27] MEDS: BENZTROPINE MESYLATE 1 MG TABLET PO SCH ×2 (08:51→16:55)
[2022-02-27] MEDS: QUEtiapine FUMARATE 200 MG TABLET PO SCH ×2 (08:51→16:55)
[2022-02-27] MEDS: DOCUSATE SODIUM 100 MG CAPSULE PO SCH (08:51)
[2022-02-27] MEDS: LITHIUM CARBONATE 300 MG CAPSULE PO SCH (20:25)
[2022-02-27 21:23] VITALS: BP 108/70
[2022-02-28] MEDS: RisperiDONE 3 MG TABLET PO SCH ×2 (08:27→17:15)
[2022-02-28] MEDS: DOCUSATE SODIUM 100 MG CAPSULE PO SCH (08:27)
[2022-02-28] MEDS: QUEtiapine FUMARATE 200 MG TABLET PO SCH ×2 (08:27→17:15)
[2022-02-28] MEDS: BENZTROPINE MESYLATE 1 MG TABLET PO SCH ×2 (08:27→17:15)
[2022-02-28 09:11] LABS: GLUCOMETER DEV NAME(LOC) POC.BV
[2022-02-28 09:13] VITALS: BP 123/70
[2022-02-28 20:00] VITALS: BP 126/60
[2022-02-28] MEDS: LITHIUM CARBONATE 300 MG CAPSULE PO SCH (20:45)
[2022-02-28] MEDS ORDERED: BENZ1TAB96 PO (22:43)
[2022-02-28] MEDS ORDERED: RISP3TAB63 PO (22:43)
[2022-02-28] MEDS ORDERED: LITH300C3 PO (22:43)
[2022-03-01] MEDS: QUEtiapine FUMARATE 200 MG TABLET PO SCH (08:50)
[2022-03-01] MEDS: DOCUSATE SODIUM 100 MG CAPSULE PO SCH (08:50)
[2022-03-01] MEDS: BENZTROPINE MESYLATE 1 MG TABLET PO SCH (08:50)
[2022-03-01] MEDS: RisperiDONE 3 MG TABLET PO SCH (08:50)
[2022-03-01 10:50] VITALS: BP 115/71
== END 2022-03-01 09:10 | disposition home or self-care (01) | DRG 750 ==
LOC: EMS 03:25 → B3A 10:59 → B2S 02-20 08:15
PROVIDERS: ADMIT Psychiatry & Neurology Psychiatry; ATTEND Psychiatry & Neurology Psychiatry
DX: F25.9 Schizoaffective disorder, unspecified (principal); Z91.199 Patient's noncompliance with other medical treatment and regimen due to unspecified reason; F31.9 Bipolar disorder, unspecified; F41.9 Anxiety disorder, unspecified; G47.00 Insomnia, unspecified; K59.00 Constipation, unspecified; Z20.822 Contact with and (suspected) exposure to COVID-19; Z79.899 Other long term (current) drug therapy
CPT/HCPCS: 80053; 80074; 80178; 84702; 85025; 87389; 87491; 87591; 99285; G0480; J0696; J1200; J1630; J2060; J3490